=== PATIENT | female | born 1990 | race Caucasian/White ===

== ENCOUNTER 2018-12-20 20:37 | Emergency (ER) | payer BC ==
[2018-12-20 20:59] VITALS: BP 151/105; PULSE 91
--- NOTE | 2018-12-20 21:34 | EDM.PDOC ---
ED HPI GENERAL MEDICAL PROBLEM - General Chief Complaint: Skin Complaint Stated Complaint: CUTS ON FINGERS POSSIBLY INFECTED Time Seen by Provider: 12/20/18 20:56 Source of Information: Reports: Patient, RN Notes Reviewed History Limitations: Reports: No Limitations - History of Present Illness INITIAL COMMENTS - FREE TEXT/NARRATIVE: Patient is a 28-year-old female who presents to the ED for dry broken skin on her fingers around nailbeds. Patient notes that she is a [employer], and washes and dries her hands quite a bit. She notes that she has several areas on her fingertips that are dry, cracked, and painful. She states that the area on her right middle finger is the worst, and this does have a deep crack to the very tip of the finger. She states that she is getting shooting pain up her fingers. She notes that she has tried a whole bunch of different kinds of lotions in attempts to try to relieve the dry painful skin. Nothing has really provided much benefit. She denies any sort of fevers or chills, there is no obvious redness to the fingers. - Related Data Allergies Allergy/AdvReac Type Severity Reaction Status Date / Time clindamycin Allergy Cannot Verified 12/20/18 20:54 Remember shellfish Allergy Airway Uncoded 12/20/18 20:54 Tightness Home Meds: Home Meds . [No Known Home Meds] 12/20/18 [History] Control. 12/20/18 [History] Past Medical History - Past Health History Medical/Surgical History: Denies Medical/Surgical History HEENT History: Reports: Other (See Below) Other HEENT History: TMJ - Past Surgical History HEENT Surgical History: Reports: Tonsillectomy Social & Family History - Tobacco Use Smoking Status *Q: Current Every Day Smoker Years of Tobacco use: 7 Packs/Tins Daily: 0.3 - Caffeine Use Caffeine Use: Reports: Coffee - Recreational Drug Use Recreational Drug Use: No ED ROS GENERAL - Review of Systems Review Of Systems: See Below Constitutional: Denies: Fever, Chills HEENT: Reports: No Symptoms Respiratory: Reports: No Symptoms Cardiovascular: Reports: No Symptoms Endocrine: Reports: No Symptoms GI/Abdominal: Reports: No Symptoms : Reports: No Symptoms Musculoskeletal: Reports: No Symptoms Skin: Reports: Dryness (diffuse dry cracked skin on multiple fingers). Denies: Erythema Neurological: Denies: Numbness, Tingling Psychiatric: Reports: No Symptoms Hematologic/Lymphatic: Reports: No Symptoms Immunologic: Reports: No Symptoms ED EXAM, SKIN/RASH Exam: See Below Exam Limited By: No Limitations General Appearance: Alert, WD/WN, No Apparent Distress Eye Exam: Bilateral Eye: EOMI, Normal Inspection, PERRL Respiratory/Chest: No Respiratory Distress, Lungs Clear, Normal Breath Sounds, No Accessory Muscle Use, Chest Non-Tender Cardiovascular: Normal Peripheral Pulses, Regular Rate, Rhythm, No Murmur Peripheral Pulses: 3+: Radial (L), Radial (R) Extremities: Normal Range of Motion, Normal Capillary Refill, Other (Severely dry cracked skin to multiple fingers on both extremities, the worst is on the right distal middle fingertip, there is a deep crack noted. There are multiple dry skin changes noted to the cuticles of multiple fingers.) Neurological: Alert, Oriented, Normal Cognition, No Motor/Sensory Deficits Psychiatric: Normal Affect, Normal Mood Skin: Warm, Dry, Normal Color, No Rash, Other (Severely dry cracked skin to multiple fingers on both extremities, the worst is on the right distal middle fingertip, there is a deep crack noted. There are multiple dry skin changes noted to the cuticles of multiple fingers.) Location, Skin: Upper Extremity, Right, Upper Extremity, Left Course - Vital Signs Last Recorded V/S: Last Vital Signs Temp 98.0 F 12/20/18 20:54 Pulse 91 12/20/18 20:54 Resp BP 151/105 H 12/20/18 20:54 Pulse Ox 100 12/20/18 20:54 - Re-Assessments/Exams Free Text/Narrative Re-Assessment/Exam: 12/20/18 21:35 Patient presents to the ED for the evaluation of dry cracked hands and fingers. I do not believe there is any sort of infection or cellulitis present in the fingers, this does appear to be just severely dry cracked fingertips, the patient has been using extravasation, and unfortunately due to her job she will have to keep washing her hands regularly. I will give general recommendations and have her follow up in clinic if the conservative measures are not providing much benefit. Departure - Departure Time of Disposition: 21:38 Disposition: Home, Self-Care 01 Condition: Fair Clinical Impression: Cracked skin, Eczema of both hands - Discharge Information *PRESCRIPTION DRUG MONITORING PROGRAM REVIEWED*: No *COPY OF PRESCRIPTION DRUG MONITORING REPORT IN PATIENT FRANCK: No Referrals: Rabia Grider PA-C [Primary Care Provider] - Additional Instructions: You were evaluated in the ED today for your dry cracked hands. There is no indication today that there is any sort of bacterial infection. This is most likely due to excessive dryness due to continual washing of your hands for work. General recommendations include: avoidance of irritants or exacerbating factors is beneficial for most patients with dyshidrotic eczema. General skin care measures aimed at reducing skin irritation and restoring the skin barrier -Using lukewarm water and soap-free cleansers to wash hands -Drying hands thoroughly after washing -Applying emollients (eg, petroleum jelly) immediately and liberally after hand drying and as often as possible. There is a product called Carmine huskers lotion , this is available through many different retailers, you might be able to find this at [employer] or through [employer]. -Wearing cotton gloves under vinyl or other nonlatex gloves when performing wet work.you may want to try to use the moisturization under gloves while at work and try to keep her gloves on as much as possible and reapply the moisturization liberally. Petroleum jelly might be your best option while at work. -Removing rings and watches and bracelets before wet work -Wearing protective gloves in cold weather -Wearing task-specific gloves for frictional exposures (eg, gardening, carpentry ) -Avoiding exposure to irritants (eg, detergents, solvents, hair lotions or dyes , acidic foods [eg, citrus fruit]) Please return to the ED if your symptoms should change or worsen.
== END 2018-12-20 22:06 | disposition home or self-care (01) ==
LOC: JD.ED 20:37
DX: L30.9 Dermatitis, unspecified (principal); F17.200 Nicotine dependence, unspecified, uncomplicated; Z91.013 Allergy to seafood; Z88.1 Allergy status to other antibiotic agents
CPT/HCPCS: 99283

== ENCOUNTER 2019-05-10 18:06 | Emergency (ER) | payer BC ==
[2019-05-10] MEDS ORDERED: Doxycycline 100 MG in Sodium Chloride 0.9% 100 ML IV ONE (18:40)
--- NOTE | 2019-05-10 18:45 | EDM.PDOC ---
ED HPI GENERAL MEDICAL PROBLEM - General Chief Complaint: Skin Complaint Stated Complaint: STAPH INFECTION Time Seen by Provider: 05/10/19 18:22 Source of Information: Reports: Patient History Limitations: Reports: No Limitations (,) - History of Present Illness INITIAL COMMENTS - FREE TEXT/NARRATIVE: Patient is a 28-year-old female who presents with complaints of redness, erythema, and swelling to her right ear, as well as scattered scabs and lesions to her left neck. Patient states she was seen in the walk-in clinic at [place] on 04 May. She was started on Keflex 500 mg 3 times a day. She states since that time the swelling and erythema to her right ear did improve, and the drainage from the lesions on her left neck has improved, however the lesions have not healed and since that time the swelling and erythema to her right ear has gotten worse. She denies any nausea, vomiting, or fever at this time. She has been taking ibuprofen fairly consistently to help with the pain, however she states it is very painful to her right ear. She has no known history of MRSA. Right Ear Pain Score (Numeric/FACES): 7 - Related Data Allergies Allergy/AdvReac Type Severity Reaction Status Date / Time clindamycin Allergy Cannot Verified 05/10/19 18:18 Remember shellfish Allergy Airway Uncoded 05/10/19 18:18 Tightness Home Meds: Home Meds Control. 1 tab PO DAILY 12/20/18 [History] Doxycycline [Vibramycin] 100 mg PO BID 10 Days #20 tab 05/10/19 [Rx] cephALEXin [Keflex] 500 mg PO TID 05/10/19 [History] Past Medical History - Past Health History Medical/Surgical History: Denies Medical/Surgical History HEENT History: Reports: Other (See Below) Other HEENT History: TMJ - Past Surgical History HEENT Surgical History: Reports: Tonsillectomy Social & Family History - Tobacco Use Smoking Status *Q: Current Every Day Smoker Years of Tobacco use: 4 Packs/Tins Daily: 0.3 - Caffeine Use Caffeine Use: Reports: Coffee - Recreational Drug Use Recreational Drug Use: No ED ROS GENERAL - Review of Systems Review Of Systems: Comprehensive ROS is negative, except as noted in HPI. ED EXAM, SKIN/RASH Exam: See Below Exam Limited By: No Limitations General Appearance: Alert, WD/WN, Mild Distress Ears: Normal TMs, Other (Right ear and tissue surrounding the ear are erythematous and swollen. Area is tender to touch.) Respiratory/Chest: No Respiratory Distress Cardiovascular: Normal Peripheral Pulses, Regular Rate, Rhythm, No Edema, No Gallop, No JVD, No Murmur, No Rub Neurological: Alert, Oriented, CN II-XII Intact, Normal Cognition, Normal Gait, Normal Reflexes, No Motor/Sensory Deficits Psychiatric: Normal Affect, Normal Mood Skin: Warm, Dry, Other (Right ear and tissue surrounding the ear are erythematous and swollen. Area is tender to touch. Scattered, dry, scabbed lesions to the base of the left neck. Mild erythema to this area. No drainage noted from either areas.) Course - Vital Signs Last Recorded V/S: Last Vital Signs Temp 98.1 F 05/10/19 18:14 Pulse 94 05/10/19 18:14 Resp 16 05/10/19 18:14 BP 152/102 H 05/10/19 18:14 Pulse Ox 99 05/10/19 18:14 - Orders/Labs/Meds Orders: Active Orders 24 hr Category Date Time Status Doxycycline [Vibramycin] 100 mg Med 05/10/19 18:40 Active Sodium Chloride 0.9% [Normal Saline] 100 ml IV ONETIME Medication Orders Doxycycline Hyclate 100 mg/ (Sodium Chloride) 100 mls @ 100 mls/hr IV ONETIME ONE Stop: 05/10/19 19:39 Meds: Medications Generic Name Dose Route Start Last Admin Trade Name Freq PRN Reason Stop Dose Admin Doxycycline Hyclate 100 mg/ 100 mls @ 100 mls/hr 05/10/19 18:40 Sodium Chloride IV 05/10/19 19:39 ONETIME ONE - Re-Assessments/Exams Free Text/Narrative Re-Assessment/Exam: 05/10/19 18:45 Based on patient's symptoms at this time. I feel that it is a definite possibility that she has MRSA. She has been on Keflex for 6 days and still has significant and worsening erythema and swelling to her right ear. I will give her a dose of IV doxycycline in the ER tonight. We will then write a prescription for doxycycline. I did recommend that she call to schedule an appointment with her primary care provider, Rabia Grider, tomorrow for a follow-up to ensure that this is getting better. Discharge instructions as documented. Departure - Departure Time of Disposition: 18:46 Disposition: Home, Self-Care 01 Condition: Fair Clinical Impression: Cellulitis Qualifiers: Site of cellulitis: unspecified site Qualified Code(s): L03.90 - Cellulitis, unspecified - Discharge Information Prescriptions: Doxycycline [Vibramycin] 100 mg PO BID 10 Days #20 tab Instructions: Cellulitis, Adult Referrals: Rabia Grider PA-C [Primary Care Provider] - Forms: ED Department Discharge, ED Return to Work/School Form Additional Instructions: You were seen in the emergency department today for cellulitis to your right ear and left neck. As we discussed, your symptoms should be improving after 6 days on Keflex. It is likely that the microorganism causing the infection is resistant to the Keflex you are taking. You were given an IV dose of doxycycline in the ER [facility]. He also be started on a prescription of doxycycline. This has been sent electronically to [facility]. Take this medication as prescribed. Continue to use [id number] ibuprofen as needed for the pain. Recommend that you call tomorrow to schedule follow-up appointment with your primary care provider to ensure that this is getting better. If you should experience any worsening symptoms, please do not hesitate to return to the emergency department. Sepsis Event Note - Evaluation Sepsis Screening Result: No Definite Risk - Focused Exam Vital Signs: Vital Signs Temp Pulse Resp BP Pulse Ox 05/10/19 18:14 98.1 F 94 16 152/102 H 99 Date Exam was Performed: 05/10/19 Time Exam was Performed: 19:03 - My Orders Last 24 Hours: My Active Orders 05/10/19 18:40 Doxycycline [Vibramycin] 100 mg Sodium Chloride 0.9% [Normal Saline] 100 ml IV ONETIME - Assessment/Plan Last 24 Hours: My Active Orders 05/10/19 18:40 Doxycycline [Vibramycin] 100 mg Sodium Chloride 0.9% [Normal Saline] 100 ml IV ONETIME
[2019-05-10 20:28] VITALS: BP 124/90; PULSE 76
== END 2019-05-10 20:24 | disposition home or self-care (01) ==
LOC: JD.ED 18:06
DX: H60.11 Cellulitis of right external ear (principal); L03.221 Cellulitis of neck; F17.210 Nicotine dependence, cigarettes, uncomplicated; Z88.1 Allergy status to other antibiotic agents; Z91.013 Allergy to seafood
CPT/HCPCS: 96365; 99282; J3490; J7050; 99283

== ENCOUNTER 2023-03-04 11:42 | Emergency (ER) | payer BC, MEDICAID ==
[2023-03-04] MEDS ORDERED: Sodium Chloride 0.9% 10 ML Syringe FLUSH PRN (12:52)
[2023-03-04] MEDS ORDERED: HYDROmorphone 0.5 MG/0.5 ML Syringe IVPUSH ONE (12:53)
[2023-03-04] MEDS ORDERED: methylPREDNISolone Sodium Succinate 125 MG/2 ML SDV IVPUSH ONE (12:53)
[2023-03-04 13:14] LABS: BASOPHILS ABSOLUTE AUTO 0.1 K/mm3 (0.0-0.2); BASOPHILS PERCENT AUTO 0.7 % (0.0-1.0); EOSINOPHILS ABSOLUTE AUTO 0.5 K/mm3 (0.0-0.4); EOSINOPHILS PERCENT AUTO 5.5 % (0.0-6.0); HEMATOCRIT 39.3 % (37.0-47.0); IMMATURE GRAN ABSOLUTE AUTO 0.03 K/mm3 (0.00-0.05); IMMATURE GRAN PERCENT AUTO 0.3 % (0.0-0.4); LYMPHOCYTES ABSOLUTE AUTO 1.5 K/mm3 (1.0-4.8); LYMPHOCYTES PERCENT AUTO 16.8 % (24.0-44.0); MEAN CORPUSCULAR HGB CONC 33.1 g/dl (32.0-36.0); MEAN CORPUSCULAR VOLUME 81.7 fl (83.0-99.0); MEAN PLATELET VOLUME 10.3 fl (9.4-12.3); MONOCYTES ABSOLUTE AUTO 0.5 K/mm3 (0.0-0.8); MONOCYTES PERCENT AUTO 5.6 % (0.0-8.0); NEUTROPHILS ABSOLUTE AUTO 6.2 K/mm3 (1.8-7.7); NEUTROPHILS PERCENT AUTO 71.1 % (41.0-71.0); PLATELET COUNT,PLT 268 K/mm3 (150-400); RED BLOOD CELL COUNT 4.81 M/mm3 (4.10-5.30); WHITE BLOOD CELL COUNT,WBC 8.75 K/mm3 (3.9-11.3)
[2023-03-04 13:39] LABS: A/G RATIO 0.9 (1-2); ALANINE AMINOTRANSFERASE,ALT 15 U/L (14-59); ALBUMIN 3.7 g/dl (3.4-5.0); ALKALINE PHOSPHATASE 63 U/L (46-116); ANION GAP 9.3 (5-15); ASPARTATE AMNIOTRANSFERASE,AST 19 U/L (15-37); BILIRUBIN TOTAL 0.2 mg/dL (0.2-1.0); BLOOD UREA NITROGEN,BUN 8 mg/dL (7-18); BUN/CREATININE RATIO 11.4 (14-18); C-REACTIVE PROTEIN <0.2 mg/dL (<1.0); CALCIUM 8.6 mg/dL (8.5-10.1); CARBON DIOXIDE,CO2 26 mEq/L (21-32); CHLORIDE,CL 102 mEq/L (98-107); CREATININE 0.7 mg/dL (0.55-1.02); EST CRCL DRUG DOSING (CG) 93.25 mL/min; ESTIMATED GFR 116 mL/min (>60); GLUCOSE RANDOM 97 mg/dL (70-99); POTASSIUM,K 3.3 mEq/L (3.5-5.1); PROTEIN TOTAL,TP 7.8 g/dl (6.4-8.2); SODIUM,NA 134 mEq/L (136-145)
[2023-03-04 14:35] VITALS: BP 121/85; PULSE 90
== END 2023-03-04 14:24 | disposition home or self-care (01) ==
LOC: JD.ED 11:42
DX: L30.9 Dermatitis, unspecified (principal); L03.012 Cellulitis of left finger; F17.210 Nicotine dependence, cigarettes, uncomplicated; Z88.1 Allergy status to other antibiotic agents; Z91.013 Allergy to seafood
CPT/HCPCS: 36415; 73140; 80053; 85025; 86140; 96374; 99283; J2930; 99284